=== PATIENT | female | born 1995 ===

== ENCOUNTER 2023-06-24 05:50 | Day surgery (SDC) | payer OTHER ==
[~2023-06-24] VITALS: Ht 157.5 cm; Wt 81.6 kg
[2023-06-24] MEDS ORDERED: TRAM1TAB98 PO (10:06)
== END 2023-06-24 12:20 | disposition home or self-care (01) ==
LOC: CIR.AMB 05:50
PROVIDERS: ATTEND Obstetrics & Gynecology
DX: N70.11 Chronic salpingitis (principal); N73.6 Female pelvic peritoneal adhesions (postinfective); N94.5 Secondary dysmenorrhea; R10.2 Pelvic and perineal pain